=== PATIENT | male | born 1950 | race Two or more races ===

== ENCOUNTER 2020-04-16 14:17 | Emergency (ER) | payer OTHER ==
[~2020-04-16] VITALS: Ht 170.2 cm; Wt 79.4 kg
[2020-04-16] MEDS ORDERED: METFORMIN HCL500 M4 PO (14:36)
[2020-04-16] MEDS ORDERED: VITAMIN E400 UNI6 PO (14:37)
[2020-04-16] MEDS ORDERED: SIMETHICONE125 M2 PO (14:37)
[2020-04-16] MEDS ORDERED: VITAMIN D3250 MCG PO (14:37)
[2020-04-16] MEDS ORDERED: TRIPLE OMEGA C400 MG PO (14:37)
== END 2020-04-16 20:16 | disposition home or self-care (01) ==
LOC: ER 14:17
DX: K21.9 Gastro-esophageal reflux disease without esophagitis (principal)